=== PATIENT | female | born 1990 | race Caucasian/White ===

== ENCOUNTER 2016-07-04 17:49 | Emergency (ER) | payer OTHER, MEDICAID ==
[2016-07-04 18:02] VITALS: TEMP 98.8
[2016-07-04] MEDS ORDERED: NS 1,000 ML IV ONE (18:06)
[2016-07-04] MEDS ORDERED: KETOROLAC 30 MG/1 ML SDV IVP ONE (18:06)
[2016-07-04] MEDS ORDERED: DEXAMETHASONE 10 MG/ML VIAL IVP ONE (18:06)
[2016-07-04] MEDS ORDERED: METOCLOPRAMIDE 10 MG/2 ML VIAL IVP ONE (18:07)
[2016-07-04] MEDS ORDERED: LORazepam 2 MG/ML INJ IVP ONE (18:12)
--- NOTE | 2016-07-04 19:21 | UCPHY ---
H & P Patient Type: Established Chief Complaint Nursing Narrative: migraine hx, migraine lasting 1 week, OTC meds not working. Time Seen by Provider: 07/04/16 18:04 HPI/ROS: This patient has a headache that is frontal location throbbing in nature and consistent with her previous migraines. She describes the pain as 8/10. She has had an ongoing headache now for 1 week. Peak intensity is current intensity. She has tried [id number]-lhyekat medications which usually gives her relief such as Excedrin without relief. She has associated nausea with vomiting intermittently. She also describes hyper ache uses and photophobia. ROS: No recent fevers or chills. No other constitutional symptoms. HEENT: No recent nasal congestion or sinus pressure. Neuro: No visual changes. No numbness tingling or focal weakness. No recent trauma. No neck stiffness. No confusion. Pulmonary in no cough. No complaints cardiovascular: No complaints. GI: Intermittent vomiting. She is tolerating p.o. fluids intermittently. No belly pain. : No complaints 10 point ROS is otherwise negative. Source: Patient Exam Limitations: No limitations - Personal History LMP (Females 10-55): Now Current Tetanus Diphtheria and Acellular Pertussis (TDAP): Unsure Tetanus Vaccine Date: unsure - Medical/Surgical History PMH: Migraines Mild asthma Hx Asthma: Yes Hx Chronic Respiratory Disease: No Hx Diabetes: No Hx Cardiac Disease: No Hx Renal Disease: No Hx Cirrhosis: No Hx Alcoholism: No Hx HIV/AIDS: No Hx Splenectomy or Spleen Trauma: No Other PMH: bulging discs, cholecystectomy, heart murmur, chronic back pain, migraines,tubal ligation,3 -csect - Family History Significant Family History: No pertinent family hx - Social History Smoking Status: Former smoker Alcohol Use: Occasionally Drug Use: None - Physical Exam Exam: Physical exam: Vital signs are normal General: Patient is in no acute distress. HEENT: Is no external evidence of trauma on exam. Eyes: Pupils are equal and reactive to light. Extraocular motions are intact. Optic fundi: Clear with no papilledema or hemorrhage. Nose atraumatic. Ears: Clear bilaterally with no hemotympanum. Oropharynx: No dental trauma or malocclusion. No intraoral lacerations. Neck: Supple with no meningismus Lungs: Clear to auscultation bilaterally Cardiac: Regular rate and rhythm no murmur gallop or rub. Abdomen: Soft nontender no organomegaly Skin: No rash, pallor or diaphoresis Neuro: GCS of 15. Cranial nerves II through XII intact. Cerebellar exam is normal as judged by symmetric rapid hand movements bilaterally. No pronator drift. No sensory or motor deficits are appreciated. Initial differential diagnosis: Migraine headache, viral syndrome, tension headache, doubt PASSENGER FLAGMAN infection or PASSENGER FLAGMAN lesion. Constitutional: Initial Vital Signs Temperature (C) 37.1 C 07/04/16 17:58 Heart Rate 86 07/04/16 17:58 Respiratory Rate 16 07/04/16 17:58 Blood Pressure 161/89 H 07/04/16 17:58 O2 Sat (%) 100 07/04/16 17:58 O2 Delivery Mode Room Air Allergies/Adverse Reactions: aloe vera [Aloe Vera] Allergy (Verified 03/03/16 12:21) apple [Apple] Allergy (Verified 03/03/16 12:21) lactose [Lactose] Allergy (Verified 03/03/16 12:21) prochlorperazine edisylate [From Compazine] Allergy (Verified 03/03/16 12:21) prochlorperazine maleate [From Compazine] Allergy (Verified 03/03/16 12:21) Sulfa (Sulfonamide Antibiotics) Allergy (Verified 03/03/16 12:21) ZOFRAN, CAUSES MIGRAINES Allergy (Uncoded 03/03/16 12:21) Home Medications: Medication Instructions Recorded Albuterol Hfa Anes Only [Proair 2 puffs IH Q4 PRN #1 mdi 05/20/14 Hfa Icu (*)] Prozac 20 MG (*) 01/11/16 SUMAtriptan [Imitrex 50 MG (RX)] 50 - 100 mg PO Q2H PRN #6 tab 07/04/16 Medical Decision Making ED Course/Re-evaluation: IV normal saline bolus Reglan, Benadryl, Toradol, Decadron, 0.5 mg of Ativan IV with complete resolution of her headache down to a 0/10. at the time discharge patient has normal vital signs, feels well continues to have a normal mental status and nonfocal exam. Discussion: Patient with migraine improved with treatment. No clinical evidence to suggest PASSENGER FLAGMAN infection, or other concerning findings. - Data Points Medications Given: Discontinued Medications Dexamethasone (Decadron Injection) 10 mg IVP EDNOW ONE Stop: 07/04/16 18:07 Last Admin: 07/04/16 19:08 Dose: 10 mg Diphenhydramine HCl (Benadryl Injection) 25 mg IVP EDNOW ONE Stop: 07/04/16 18:07 Last Admin: 07/04/16 19:08 Dose: 25 mg Sodium Chloride (Ns) 1,000 mls @ 0 mls/hr IV ONCE ONE PRN Reason: Wide Open Stop: 07/04/16 18:07 Last Admin: 07/04/16 19:09 Dose: 1,000 mls Ketorolac Tromethamine (Toradol) 30 mg IVP EDNOW ONE Stop: 07/04/16 18:07 Last Admin: 07/04/16 19:08 Dose: 30 mg Lorazepam (Ativan Injection) 0.5 mg IVP EDNOW ONE Stop: 07/04/16 18:13 Last Admin: 07/04/16 19:08 Dose: 0.5 mg Metoclopramide HCl (Reglan Injection) 5 mg IVP EDNOW ONE Stop: 07/04/16 18:08 Last Admin: 07/04/16 19:09 Dose: 5 mg Departure - Departure Disposition: Home, Routine, Self-Care Clinical Impression: Dehydration Migraine Qualifiers: Migraine type: unspecified Status migrainosus presence: with status migrainosus Intractability: not intractable Qualified Code(s): G43.901 - Migraine, unspecified, not intractable, with status migrainosus Condition: Good Instructions: Migraine Headache (ED) Additional Instructions: Diagnosis: Migraine 2. Dehydration Plan: Home to rest. Drink plenty fluids If you have a recurrent headache, try Imitrex and ibuprofen Follow up your primary care physician for recheck for any ongoing symptoms Go to the emergency department for any significant worsening of her symptoms despite treatment plan Referrals: Clemencia Ruby MD [Primary Care Provider] - As per Instructions Prescriptions: SUMAtriptan [Imitrex 50 MG (RX)] 50 - 100 mg PO Q2H PRN #6 tab PRN Reason: migraine - PQRS PQRS Measurement: NA
[2016-07-04 19:30] VITALS: BP 115/68; PULSE 92; RESP 12; O2SAT 94
== END 2016-07-04 19:34 | disposition home or self-care (01) ==
LOC: CED 17:49
DX: G43.901 Migraine, unspecified, not intractable, with status migrainosus (principal); E86.0 Dehydration; Z87.891 Personal history of nicotine dependence
CPT/HCPCS: 96361-PO; 96374-PO; 96375-PO; 99215-PO; G0463-PO; J1200; J1885; J2765

== ENCOUNTER 2016-11-19 14:39 | Emergency (ER) | payer OTHER, MEDICAID ==
[2016-11-19 14:57] VITALS: RESP 16
[2016-11-19] MEDS ORDERED: NS 1,000 ML IV ONE (15:20)
[2016-11-19] MEDS ORDERED: ONDANSETRON 4 MG/2 ML VIAL IVP ONE (15:20)
[2016-11-19 15:26] LABS: % IMMATURE GRANULYOCYTES 0.3 % (0.0-1.1); ABSOLUTE IMMATURE GRANULOCYTES 0.03 10^3/uL (0.00-0.10); ADD DIFF? NO; ADD MORPH? NO; ADD SCAN? NO; ATYPICAL LYMPHOCYTE FLAG 0 (0-99); FRAGMENT RBC FLAG 20 (0-99); HEMATOCRIT 34.4 % (38.0-47.0); HEMOGLOBIN 11.2 g/dL (12.6-16.3); LEFT SHIFT FLG 0 (0-99); LIPEMIA HEMOLYSIS FLAG 80 (0-99); MEAN CELL HEMOGLOBIN 27.1 pg (27.9-34.1); MEAN CELL HEMOGLOBIN CONCENTR. 32.6 g/dL (32.4-36.7); MEAN CELL VOLUME 83.3 fL (81.5-99.8); MEAN PLATELET VOLUME 11.6 fL (8.7-11.7); PLATELET CLUMPS FLAG 10 (0-99); PLATELET COUNT 262 10^3/uL (150-400); RED BLOOD CELL COUNT 4.13 10^6/uL (4.18-5.33); RED CELL DISTRIBUTION WIDTH 16.6 % (11.5-15.2)
--- NOTE | 2016-11-19 15:29 | EDPHY ---
H & P Stated Complaint: suprapubic abd pain x1wk with chills,nausea and vomiting Time Seen by Provider: 11/19/16 14:50 HPI/ROS: This patient reports fairly abrupt onset of lower abdominal pain suprapubic region 1 week ago while she was doing dishes at home. Since then she has had constant ongoing pain associated with bilateral low back pain that is now 7/10 intensity achy in nature. She notes no clear exacerbating factors. She states that the back pain is about 4/10 intensity. It does not worsen with movement. She does have associated nausea and slightly decreased appetite but no other associated symptoms. She has never had this type of discomfort before. She reports partial relief from ibuprofen Tylenol in no other exacerbating or relieving factors. She has not taken any analgesics today. ROS: No fevers or chills. No other constitutional symptoms HEENT: No symptoms Pulmonary: No cough shortness of breath Neuro: Occasional lightheadedness since the symptoms started. No syncope. No headache. Except for chronic 3/10 frontal headache similar to previous headaches. She states this is not a migraine headache which she also sometimes gets. Cardiovascular: No heart palpitations or chest pain. GI: No upper belly pain. Normal bowel movements. She has nausea and vomiting though no vomiting today she has ongoing nausea and anorexia. All she had he today was a gummy warm. Skin: No rash : No dysuria. No vaginal discharge. Last menstrual period was normal timing 2 weeks ago. 10 point ROS is otherwise negative Source: Patient Exam Limitations: No limitations - Personal History LMP (Females 10-55): 8-14 Days Ago Tetanus Vaccine Date: unsure - Medical/Surgical History Hx Asthma: Yes Hx Chronic Respiratory Disease: No Hx Diabetes: No Hx Cardiac Disease: No Hx Renal Disease: No Hx Cirrhosis: No Hx Alcoholism: No Hx HIV/AIDS: No Hx Splenectomy or Spleen Trauma: No Other PMH: bulging discs, cholecystectomy, heart murmur, chronic back pain, migraines,tubal ligation,3 -csect G 3 P 3 - Family History Significant Family History: No pertinent family hx - Social History Smoking Status: Current every day smoker (She smokes 10 cigarettes a day) Alcohol Use: Rarely Drug Use: None Additional Social History: Mother of 3 children ages 2 4 in 6 - Physical Exam Exam: General Appearance: Alert, no distress. Eyes: Pupils equal and round no pallor or injection. ENT, Mouth: Mucous membranes moist. Respiratory: There are no retractions, lungs are clear to auscultation. Cardiovascular: Regular rate and rhythm. Gastrointestinal: Normoactive, soft, mild suprapubic tenderness with no guarding or rebound. She also has mild right lower quadrant tenderness with no guarding or rebound but the suprapubic tenderness is more severe. No upper belly tenderness. She is moderately obese. scar is clean dry intact Back: She has left paraspinous tenderness more than right and mild midline tenderness. Despite this she maintains a good range of motion and straight leg raise is negative bilaterally. No CVA tenderness. Neurological: GCS 15 with no focal deficits. Skin: Warm and dry, no rashes. Musculoskeletal: Neck is supple nontender. Extremities are symmetrical, full range of motion. Psychiatric: Mood and affect are normal DIFFERENTIAL DIAGNOSIS: After history and physical exam differential diagnosis was considered for mittelschmerz, ectopic , appendicitis, UTI, diverticulitis, constipation Constitutional: Initial Vital Signs Temperature (C) 37.7 C 11/19/16 14:45 Heart Rate 99 11/19/16 14:45 Respiratory Rate 16 11/19/16 14:45 Blood Pressure 140/88 H 11/19/16 14:45 O2 Sat (%) 95 11/19/16 14:45 O2 Delivery Mode Room Air Allergies/Adverse Reactions: aloe vera [Aloe Vera] Allergy (Verified 11/19/16 14:51) apple [Apple] Allergy (Verified 11/19/16 14:51) lactose [Lactose] Allergy (Verified 11/19/16 14:51) prochlorperazine edisylate [From Compazine] Allergy (Verified 11/19/16 14:51) prochlorperazine maleate [From Compazine] Allergy (Verified 11/19/16 14:51) Sulfa (Sulfonamide Antibiotics) Allergy (Verified 11/19/16 14:51) ZOFRAN, CAUSES MIGRAINES Allergy (Uncoded 11/19/16 14:51) Home Medications: Medication Instructions Recorded FLUoxetine 11/19/16 Ibuprofen [Motrin (*)] 600 mg PO Q6 PRN #30 tab 11/19/16 Ondansetron Odt [Zofran Odt] 4 - 8 mg PO Q4PRN PRN #4 tab 11/19/16 traMADol [Ultram 50 mg (*)] 50 - 100 mg PO Q4 PRN #15 tab 11/19/16 Medical Decision Making - Diagnostics Imaging Results: Imaging Impressions Abdomen CT 11/19/16 16:38 Impression: 1. Nonspecific minimal bladder wall thickening, which could be related to underdistention or inflammation. 2. Trace pleural effusions. 3. Additional findings, as above. Findings discussed with Devonte Barrera M.D., on November 19, 2016 at 1712. Imaging: Discussed imaging studies w/ call center manager Radiologist ED Course/Re-evaluation: IV normal saline bolus, and p. o. Patient declines analgesics this time. Zofran 4 mg IV with reduction in nausea. Discussion: This patient's CT scan reveals no significant pathology. With a workup today-CBC with minimal elevation of white count just over 10, normal electrolytes, negative normal urinalysis with effectively ruled out ectopic , appendicitis, UTI, diverticulitis. She does not have a surgical abdomen. She may have mittelschmerz given that the pain is mid cycle. I counseled regarding this. She understands the need to return if she has any significant worsening despite the treatment plan of oral analgesics. - Data Points Laboratory Results: Laboratory Results 11/19/16 15:12 11/19/16 15:12 11/19/16 11/19/16 11/19/16 16:10 15:12 15:12 WBC RBC Hgb Hct MCV MCH MCHC RDW Plt Count MPV Neut % (Auto) Lymph % (Auto) [place] % (Auto) Eos % (Auto) Baso % (Auto) Nucleat RBC Rel Count Absolute Neuts (auto) Absolute Lymphs (auto) Absolute Monos (auto) Absolute Eos (auto) Absolute Basos (auto) Absolute Nucleated RBC Immature Gran % Immature Gran # Sodium 140 mEq/L mEq/L (134-144) Potassium 4.0 mEq/L mEq/L (3.5-5.2) Chloride 103 mEq/L mEq/L (97-110) Carbon Dioxide 23 mEq/l mEq/l (22-31) Anion Gap 14 mEq/L mEq/L (8-16) BUN 8 mg/dL mg/dL (7-23) Creatinine 0.6 mg/dL mg/dL (0.6-1.0) Estimated GFR > 60 Glucose 120 mg/dL H mg/dL (70-100) Calcium 9.7 mg/dL mg/dL (8.5-10.4) Total Bilirubin 0.3 mg/dL mg/dL (0.1-1.4) AST 11 IU/L L IU/L (14-46) ALT 26 IU/L IU/L (9-52) Alkaline Phosphatase 60 IU/L IU/L (38-126) Total Protein 6.5 g/dL g/dL (6.3-8.2) Albumin 4.2 g/dL g/dL (3.5-5.0) Lipase 32.0 IU/L IU/L (23-300) Beta HCG, Qual NEGATIVE Urine Color YELLOW Urine Appearance CLEAR Urine pH 7.5 (5.0-7.5) Ur Specific [place] 1.010 (1.002-1.030) Urine Protein NEGATIVE (NEGATIVE) Urine Ketones NEGATIVE (NEGATIVE) Urine Blood NEGATIVE (NEGATIVE) Urine Nitrate NEGATIVE (NEGATIVE) Urine Bilirubin NEGATIVE (NEGATIVE) Urine Urobilinogen 0.2 EU EU (0.2-1.0) Ur Leukocyte Esterase NEGATIVE (NEGATIVE) Urine Glucose NEGATIVE (NEGATIVE) 11/19/16 15:12 WBC 10.20 10^3/uL H 10^3/uL (3.80-9.50) RBC 4.13 10^6/uL L 10^6/uL (4.18-5.33) Hgb 11.2 g/dL L g/dL (12.6-16.3) Hct 34.4 % L % (38.0-47.0) MCV 83.3 fL fL (81.5-99.8) MCH 27.1 pg L pg (27.9-34.1) MCHC 32.6 g/dL g/dL (32.4-36.7) RDW 16.6 % H % (11.5-15.2) Plt Count 262 10^3/uL 10^3/uL (150-400) MPV 11.6 fL fL (8.7-11.7) Neut % (Auto) 64.9 % % (39.3-74.2) Lymph % (Auto) 27.4 % % (15.0-45.0) [place] % (Auto) 4.4 % L % (4.5-13.0) Eos % (Auto) 2.6 % % (0.6-7.6) Baso % (Auto) 0.4 % % (0.3-1.7) Nucleat RBC Rel Count 0.0 % % (0.0-0.2) Absolute Neuts (auto) 6.62 10^3/uL H 10^3/uL (1.70-6.50) Absolute Lymphs (auto) 2.79 10^3/uL 10^3/uL (1.00-3.00) Absolute Monos (auto) 0.45 10^3/uL 10^3/uL (0.30-0.80) Absolute Eos (auto) 0.27 10^3/uL 10^3/uL (0.03-0.40) Absolute Basos (auto) 0.04 10^3/uL 10^3/uL (0.02-0.10) Absolute Nucleated RBC 0.00 10^3/uL 10^3/uL (0-0.01) Immature Gran % 0.3 % % (0.0-1.1) Immature Gran # 0.03 10^3/uL 10^3/uL (0.00-0.10) Sodium Potassium Chloride Carbon Dioxide Anion Gap BUN Creatinine Estimated GFR Glucose Calcium Total Bilirubin AST ALT Alkaline Phosphatase Total Protein Albumin Lipase Beta HCG, Qual Urine Color Urine Appearance Urine pH Ur Specific [place] Urine Protein Urine Ketones Urine Blood Urine Nitrate Urine Bilirubin Urine Urobilinogen Ur Leukocyte Esterase Urine Glucose Medications Given: Discontinued Medications Sodium Chloride (Ns) 1,000 mls @ 0 mls/hr IV EDNOW ONE; Wide Open PRN Reason: Protocol Stop: 11/19/16 15:21 Last Admin: 11/19/16 15:30 Dose: 1,000 mls Ondansetron HCl (Zofran) 4 mg IVP EDNOW ONE Stop: 11/19/16 15:21 Last Admin: 11/19/16 15:31 Dose: 4 mg Departure - Departure Disposition: Home, Routine, Self-Care Clinical Impression: [place] Vomiting Qualifiers: Vomiting type: unspecified Vomiting Intractability: non-intractable Nausea presence: with nausea Qualified Code(s): R11.2 - Nausea with vomiting, unspecified Condition: Good Instructions: [place] (ED) Additional Instructions: Diagnosis: Mittearelymerz 2. vomiting Plan: Ibuprofen and Tylenol for pain Tramadol in addition for pain that prevents sleep. No driving, alcohol or work on tramadol Return for any significant worsening despite treatment plan Zofran for nausea or vomiting if needed Typically this pain improves over 3-7 days. Referrals: Clemencia Ruby MD [Primary Care Provider] - As per Instructions Prescriptions: Ibuprofen [Motrin (*)] 600 mg PO Q6 PRN #30 tab PRN Reason: Pain Ondansetron Odt [Zofran Odt] 4 - 8 mg PO Q4PRN PRN #4 tab PRN Reason: Vomiting traMADol [Ultram 50 mg (*)] 50 - 100 mg PO Q4 PRN #15 tab PRN Reason: breakthrough pain
[2016-11-19 15:39] LABS: ALANINE AMINOTRANSFERASE 26 IU/L (9-52); ALBUMIN 4.2 g/dL (3.5-5.0); ALKALINE PHOSPHATASE 60 IU/L (38-126); ANION GAP 14 mEq/L (8-16); ASPARTATE AMINOTRANSFERASE 11 IU/L (14-46); BILIRUBIN,TOTAL 0.3 mg/dL (0.1-1.4); CALCIUM 9.7 mg/dL (8.5-10.4); CARBON DIOXIDE 23 mEq/l (22-31); CHLORIDE 103 mEq/L (97-110); CREATININE 0.6 mg/dL (0.6-1.0); GLOMERULAR FILTRATION RATE > 60; GLUCOSE 120 mg/dL (70-100); SODIUM 140 mEq/L (134-144); TOTAL PROTEIN 6.5 g/dL (6.3-8.2)
[2016-11-19 16:18] LABS: COLOR YELLOW; LEUKOCYTE ESTERASE,URINE NEGATIVE (NEGATIVE); NITRITE,URINE NEGATIVE (NEGATIVE); PH,URINE 7.5 (5.0-7.5)
[2016-11-19] MEDS ORDERED: IOPAMIDOL (ISOVUE-300) 100 ML BTL ONE (16:44)
[2016-11-19 17:41] VITALS: BP 117/86; PULSE 79; TEMP 98.6; O2SAT 95
== END 2016-11-19 17:40 | disposition home or self-care (01) ==
LOC: CED 14:39
DX: N94.0 Mittelschmerz (principal); R11.2 Nausea with vomiting, unspecified; J45.909 Unspecified asthma, uncomplicated; F17.210 Nicotine dependence, cigarettes, uncomplicated; Z90.49 Acquired absence of other specified parts of digestive tract
CPT/HCPCS: 74177-PO; 80053-PO; 81003-PO; 83690-PO; 84703-PO; 85025-PO; 96374; J2405; Q9967

== ENCOUNTER → 2016-12-26 | Outpatient (CLI) | payer OTHER, MEDICAID | LOC: CIMAGING 10:08 | PROVIDERS: ATTEND Family Medicine | DX: R10.13 Epigastric pain (principal); R11.2 Nausea with vomiting, unspecified; Z90.49 Acquired absence of other specified parts of digestive tract | CPT/HCPCS: 76700-PO ==

== ENCOUNTER 2017-05-15 12:26 | Emergency (ER) | payer MEDICAID, OTHER ==
[2017-05-15 12:34] VITALS: BP 134/90; PULSE 80; RESP 18; TEMP 98.4; O2SAT 99
[2017-05-15] MEDS ORDERED: IBUPROFEN 600 MG TAB PO ONE (12:40)
--- NOTE | 2017-05-15 13:10 | EDPHY ---
H & P Time Seen by Provider: 05/15/17 12:36 HPI/ROS: This patient tripped on a toy that her child left on stairs at her home last night falling down 6 carpeted stairs and injuring her left ankle. She reports most the pain is to the medial ankle but there is also circumferential swelling to the distal leg. She thinks she likely struck the leg against a wooden brace at the end of the stairs during her fall. She reports 7/10 ankle pain. She took ibuprofen Tylenol last night but has not taken any medications this morning. The pain worsens with attempts at weight-bearing. No other exacerbating factors. She came here by private vehicle for evaluation ROS: Neuro: She did strike her head on the wood floor and had a brief headache last night but was not dazed and had no LOC. No headache today. No numbness tingling or focal weakness. No confusion. Musculoskeletal: No neck, back or other extremity injuries. GI: No vomiting 5 point ROS is otherwise negative Past Medical/Surgical History: Moderate obesity. Otherwise healthy Social History: She has 3 children ages 3, 5, and 7 and is a [id number] mother Smoking Status: Former smoker Physical Exam: Physical Exam Vital signs are normal. General: Pleasant moderately obese female No acute distress HEENT: Atraumatic. Appreciate no scalp hematomas or significant scalp tenderness. No facial trauma. Nose is atraumatic oropharynx: No dental trauma ears: Clear bilaterally Neck: Nontender Eyes: Pupils equal and react to light. Extraocular motions are intact. Lungs: No respiratory distress. No chest wall tenderness Back: Nontender Cardiac: Brisk capillary refill is intact throughout. Pulses are 2+ and symmetric in the affected extremity. Skin: The patient has a small scab less than a cm in diameter to the left lower leg that she attributes to an insect bite sometime within the last 10 days. This inferior to this is the area of ecchymosis swelling and slight erythema. There is also very slight warmth to touch. No fluctuance. Extremities: Atraumatic normal except for left ankle Left ankle: Patient has circumferential swelling to the distal leg with associated ecchymosis and mild tenderness medially more than laterally. Ecchymosis extends to the area just inferior to the medial malleolus with associated tenderness that is moderate. Anterior drawer exam reveals no laxity. She has no associated foot swelling or tenderness. Neuro: GCS 15. Cranial nerves 2 through 12 are intact. She has no focal sensory or motor deficits. Initial differential diagnosis: Traumatic hematoma, ankle sprain, ankle fracture, cellulitis from insect bite, doubt DVT Constitutional: Initial Vital Signs Temperature (C) 36.9 C 05/15/17 12:29 Heart Rate 80 05/15/17 12:29 Respiratory Rate 18 05/15/17 12:29 Blood Pressure 134/90 H 05/15/17 12:29 O2 Sat (%) 99 05/15/17 12:29 O2 Delivery Mode Room Air Allergies/Adverse Reactions: aloe vera [Aloe Vera] Allergy (Verified 05/15/17 12:36) Hives lactose [Lactose] Allergy (Verified 05/15/17 12:36) Vomiting ondansetron Allergy (Verified 05/15/17 12:36) Other-Enter Comments prochlorperazine edisylate [From Compazine] Allergy (Verified 05/15/17 12:36) Other-Enter Comments prochlorperazine maleate [From Compazine] Allergy (Verified 05/15/17 12:36) Other-seizure Sulfa (Sulfonamide Antibiotics) Allergy (Verified 05/15/17 12:36) Vomiting Home Medications: Medication Instructions Recorded FLUoxetine 11/19/16 Hyoscyamine 05/15/17 traMADol [Ultram 50 mg (*)] 50 - 100 mg PO Q4 PRN #15 tab 05/15/17 MDM/Departure - MDM Diagnostics: Three-view Ankle x-ray is negative for fracture by my interpretation. There is evidence of soft tissue swelling. Imaging: I viewed and interpreted images myself Medications Given: Discontinued Medications Ibuprofen (Motrin) 600 mg PO EDNOW ONE Stop: 05/15/17 12:41 Last Admin: 05/15/17 12:42 Dose: 600 mg ED Course/Re-evaluation: Ibuprofen p.o. I counseled patient regarding ankle sprain Patient requests something in addition for analgesia beyond ibuprofen Tylenol. Will provide a small prescription of tramadol in a counseled her regarding this medication. Our tech placed the patient in Dung wrap and a Velcro stirrup splint as per my direction. Patient is neurovascularly intact post splint application. Discussion: Patient with medial ankle sprain and traumatic hematoma to the lower leg. I doubt cellulitis in this patient from previous insect bite. I counseled her regarding ankle sprain. Although she struck her head she has no evidence clinically by history of concussion and no clinical evidence that would suggest intracranial bleed, contusion or other complicating factors/no evidence of significant head injury today. She is placed in Dung wrap. Counseled her regarding her injury - Depart Disposition: Home, Routine, Self-Care Clinical Impression: Traumatic hematoma Ankle sprain Qualifiers: Encounter type: initial encounter Involved ligament of ankle: deltoid ligament Laterality: left Qualified Code(s): S93.422A - Sprain of deltoid ligament of left ankle, initial encounter Minor head injury without loss of consciousness Qualifiers: Encounter type: initial encounter Qualified Code(s): S09.90XA - Unspecified injury of head, initial encounter Condition: Good Instructions: Head Injury (ED), Ankle Sprain (ED), Crutch Instructions (ED) Additional Instructions: Diagnosis: 1. Ankle sprain 2. Traumatic hematoma of left leg 3. Minor head injury Plan: Ice, elevation of affected lower extremity Ankle brace when your up and about until symptoms improve Tylenol and tramadol for pain if needed. No driving, alcohol work on tramadol. Follow up with orthopedic physician listed below if he have any ongoing symptoms last beyond the next week to 10 days despite the treatment plan. Use crutches when your up and about until it no longer hurts to bear weight. Return if he develops any significant worsening symptoms despite treatment plan Prescriptions: traMADol [Ultram 50 mg (*)] 50 - 100 mg PO Q4 PRN #15 tab PRN Reason: breakthrough pain Referrals: Brandon Haskins MD [Medical Doctor] - As per Instructions
== END 2017-05-15 13:25 | disposition home or self-care (01) ==
LOC: CED 12:26
DX: S09.90XA Unspecified injury of head, initial encounter (principal); S80.12XA Contusion of left lower leg, initial encounter; S93.422A Sprain of deltoid ligament of left ankle, initial encounter; Z87.891 Personal history of nicotine dependence; W10.8XXA Fall (on) (from) other stairs and steps, initial encounter
CPT/HCPCS: 73610-PO; L4350

== ENCOUNTER → 2017-05-31 | Outpatient (CLI) | payer MEDICAID | LOC: CIMAGING 15:19 | PROVIDERS: ATTEND Family Medicine | DX: M48.04 Spinal stenosis, thoracic region (principal) | CPT/HCPCS: 71046-PO; 72070-PO; 72100-PO ==

== ENCOUNTER → 2017-06-07 | Outpatient (CLI) | payer MEDICAID | LOC: FIMAGING 07:58 | PROVIDERS: ATTEND Family Medicine | DX: M51.24 Other intervertebral disc displacement, thoracic region (principal); G95.20 Unspecified cord compression ==

== ENCOUNTER → 2017-06-09 | Outpatient (CLI) | payer MEDICAID | LOC: FIMAGING 15:00 | PROVIDERS: ATTEND Family Medicine | DX: M25.572 Pain in left ankle and joints of left foot (principal); R60.9 Edema, unspecified ==

== ENCOUNTER 2018-01-22 14:57 | Emergency (ER) | payer MEDICAID ==
[2018-01-22] MEDS ORDERED: NS 1,000 ML IV ONE (15:16)
--- NOTE | 2018-01-22 16:24 | EDPHY ---
H & P Time Seen by Provider: 01/22/18 15:03 HPI/ROS: HPI Cough, congestion, abdominal pain. 27-year-old female from the offices of [facility]. This patient reports that she has had body aches, a dry hacking cough, nausea and intermittent fevers and nasal congestion ongoing for 3 weeks now. She was seen at [facility] for that. She also told her primary care physician at [facility] that she was having right lower quadrant pain. She was sent over here for CT imaging to evaluate for possible appendicitis. She denies ill contacts. She is immunized. ROS: Constitutional: As above, no chills. No weakness. Eyes: No discharge. No changes in vision. ENT: As above. Respiratory: As above. No shortness of breath. Cardiac: No chest pain, no palpitations. Gastrointestinal: As above, no vomiting, no diarrhea. Genitourinary: No hematuria. No dysuria or increased frequency with urination. Musculoskeletal: No back pain. No neck pain. No myalgias or arthralgias. Skin: No rashes. Neurological: No headache. No focal weakness or altered sensation. Past medical history: Bulging disc, cholecystectomy, heart murmur, chronic back pain, migraine headaches, tubal ligation, x3, . Social history: Here by herself. Nonsmoker. No alcohol. Physical Exam: General Appearance: Alert, no distress. This patient is responding to questions appropriately and in full sentences. This patient appears well- hydrated and well-nourished. Eyes: Pupils equal and round no pallor or injection. No lid edema, erythema or injection. ENT, Mouth: Mucous membranes are moist. The pharyngeal tissues are unremarkable. No edema or swelling. No asymmetry suggestive of abscess. No erythema or exudates. No cervical, submental, submandibular lymphadenopathy. Respiratory: There are no retractions, lungs are clear to auscultation with good air movement bilaterally. No tachypnea. Intermittent dry hacking cough. Cardiovascular: Regular rate and rhythm. No murmur appreciated. Gastrointestinal: Abdomen is soft with right lower quadrant tenderness on palpation, no masses, bowel sounds normal. No focal tenderness at McBurney's point. No Renner sign. Neurological: Motor sensory function is grossly intact. Cranial nerves are normal. Gait is normal. Skin: Warm and dry, no rashes. Musculoskeletal: Neck is supple and nontender. Extremities are symmetrical. All joints range without pain or impingement. Psychiatric: No agitation. No depression. Database: EKG: Imaging: CT scan of abdomen and pelvis with IV contrast: The appendix is well visualized and is normal. She is constipated. No other significant pathology. Results were discussed with staff radiologist Dr. John Corrales. Chest x-ray PA and lateral; the cardiac mediastinal silhouette is unremarkable. No evidence of infiltrate or pneumothorax. Mild bronchitis. No acute cardiopulmonary disease process noted. Interpreted by me. Procedures: Emergency department course: Vital signs reviewed and are normal. The patient is here to be evaluated for appendicitis. She does tell me that she had a CT scan 3-4 weeks ago secondary to similar right lower quadrant pain and this was negative. This was done at a different hospital. Her exam is concerning for possible appendicitis. I also feel she has a viral bronchitis and upper respiratory infection. She consents to CT imaging to evaluate for appendicitis. An IV was placed. She was placed on a monitor. She was started on IV normal saline with 1 L to be given over the next hour. She will be given pain medication and nausea medication as needed. 5:50 p.m., the patient was re-evaluated. Resting comfortably at this time. Results of her emergency department workup were discussed with her. Repeat abdominal exam she is soft and nontender on palpation throughout. Her presentation is consistent with a viral syndrome. Respiratory pathogen panel is pending currently. However, this can be followed up by her primary care physician. She feels comfortable going home and following up with her primary care physician tomorrow. Follow-up and return to emergency department precautions thoroughly reviewed with her. All of her questions were answered. She was discharged from the emergency department in good condition. Differential Diagnosis: The differential diagnosis on this patient includes but is not limited to viral bronchitis, viral upper respiratory infection. Appendicitis, pneumonia, serious bacterial infection unlikely. This represents a partial list of diagnoses considered. These considerations are based on history, physical exam , past history, reassessment and diagnostic testing. Smoking Status: Former smoker Constitutional: Initial Vital Signs Temperature (C) 37.3 C 01/22/18 15:08 Heart Rate 94 01/22/18 15:08 Respiratory Rate 18 01/22/18 15:08 Blood Pressure 133/100 H 01/22/18 15:08 O2 Sat (%) 96 01/22/18 15:08 O2 Delivery Mode Room Air Allergies/Adverse Reactions: aloe vera [Aloe Vera] Allergy (Verified 01/22/18 15:07) Hives lactose [Lactose] Allergy (Verified 01/22/18 15:07) Vomiting ondansetron Allergy (Verified 01/22/18 15:07) Other-Enter Comments prochlorperazine edisylate [From Compazine] Allergy (Verified 01/22/18 15:07) Other-Enter Comments prochlorperazine maleate [From Compazine] Allergy (Verified 01/22/18 15:07) Other-seizure Sulfa (Sulfonamide Antibiotics) Allergy (Verified 01/22/18 15:07) Vomiting Home Medications: Medication Instructions Recorded FLUoxetine 11/19/16 traMADol [Ultram 50 mg (*)] 50 - 100 mg PO Q4 PRN #15 tab 05/15/17 Medical Decision Making - Diagnostics Imaging Results: Imaging Impressions Chest X-Ray 01/22/18 15:17 Impression: No pneumonia identified. Abdomen CT 01/22/18 16:43 Impression: 1. Constipation. 2. Airways disease/bronchitis. 3. Additional findings as above. Findings discussed with Tobias Mishra MD 01/22/2018 at 17:39. - Data Points Laboratory Results: Laboratory Results 01/22/18 15:50 01/22/18 01/22/18 01/22/18 16:20 16:01 15:50 WBC 8.55 10^3/uL 10^3/uL (3.80-9.50) RBC 3.77 10^6/uL L 10^6/uL (4.18-5.33) Hgb 10.2 g/dL L g/dL (12.6-16.3) Hct 32.8 % L % (38.0-47.0) MCV 87.0 fL fL (81.5-99.8) MCH 27.1 pg L pg (27.9-34.1) MCHC 31.1 g/dL L g/dL (32.4-36.7) RDW 15.0 % % (11.5-15.2) Plt Count 337 10^3/uL 10^3/uL (150-400) MPV 10.7 fL fL (8.7-11.7) Neut % (Auto) 50.9 % % (39.3-74.2) Lymph % (Auto) 37.7 % % (15.0-45.0) [place] % (Auto) 6.5 % % (4.5-13.0) Eos % (Auto) 3.6 % % (0.6-7.6) Baso % (Auto) 1.1 % % (0.3-1.7) Nucleat RBC Rel Count 0.0 % % (0.0-0.2) Absolute Neuts (auto) 4.35 10^3/uL 10^3/uL (1.70-6.50) Absolute Lymphs (auto) 3.22 10^3/uL H 10^3/uL (1.00-3.00) Absolute Monos (auto) 0.56 10^3/uL 10^3/uL (0.30-0.80) Absolute Eos (auto) 0.31 10^3/uL 10^3/uL (0.03-0.40) Absolute Basos (auto) 0.09 10^3/uL 10^3/uL (0.02-0.10) Absolute Nucleated RBC 0.00 10^3/uL 10^3/uL (0-0.01) Immature Gran % 0.2 % % (0.0-1.1) Immature Gran # 0.02 10^3/uL 10^3/uL (0.00-0.10) POC Sodium 144 mEq/L mEq/L (135-145) POC Potassium 4.3 mEq/L mEq/L (3.3-5.0) POC Chloride 105.0 mEq/L mEq/L (97-110) POC Total CO2 27 mEq/L mEq/L (22-31) POC BUN 7 mg/dL mg/dL (7-23) POC Creatinine 0.7 mg/dL mg/dL (0.6-1.0) POC Glucose 88 mg/dL mg/dL (70-100) POC Calcium 9.1 mg/dL mg/dL (8.5-10.4) POC Total Bilirubin 0.3 mg/dL mg/dL (0.1-1.4) POC AST 24 IU/L IU/L (14-46) POC ALT 17 IU/L IU/L (9-52) POC Alk Phosphatase 77 IU/L IU/L (38-126) POC Total Protein 6.1 g/dL L g/dL (6.3-8.2) POC Albumin 3.2 g/dL L g/dL (3.5-5.0) Urine RBC 10-15 /hpf H /hpf (0-3) Urine WBC 1-3 /hpf /hpf (0-3) Ur Epithelial Cells TRACE /lpf /lpf (NONE-1+) Medications Given: Discontinued Medications Sodium Chloride (Ns) 1,000 mls @ 0 mls/hr IV ONCE ONE; Wide Open PRN Reason: Protocol Stop: 01/22/18 15:17 Last Admin: 01/22/18 16:09 Dose: 1,000 mls Point of Care Test Results: Chemistry 01/22/18 16:01 POC Sodium 144 mEq/L mEq/L (135-145) POC Potassium 4.3 mEq/L mEq/L (3.3-5.0) POC Chloride 105.0 mEq/L mEq/L (97-110) POC Total CO2 27 mEq/L mEq/L (22-31) POC BUN 7 mg/dL mg/dL (7-23) POC Creatinine 0.7 mg/dL mg/dL (0.6-1.0) POC Glucose 88 mg/dL mg/dL (70-100) POC Calcium 9.1 mg/dL mg/dL (8.5-10.4) POC Total Bilirubin 0.3 mg/dL mg/dL (0.1-1.4) POC AST 24 IU/L IU/L (14-46) POC ALT 17 IU/L IU/L (9-52) POC Alk Phosphatase 77 IU/L IU/L (38-126) POC Total Protein 6.1 g/dL L g/dL (6.3-8.2) POC Albumin 3.2 g/dL L g/dL (3.5-5.0) Influenza PCR Flu Nasal Swab Collection Date 01/22/18 Flu Nasal Swab Collection Time 16:25 Influenza A Result Not Detected Influenza B Result Not Detected Urine Collection Date 01/22/18 Collection Time 16:20 HCG Results Negative Urine Dip Collection Date 01/22/18 Collection Time 16:20 Specific [place] (1.002-1.030) 1.015 PH (5.0-7.5) 6.0 Leukocytes (Negative) Negative Nitrites (Negative) Negative Protein (Negative) Negative Glucose (Negative) Negative Ketones (Negative) Negative Urobilnogen (0.2-1.0 EU) 0.2 Bilirubin (Negative) Negative Blood (Negative) 2+ Departure - Departure Disposition: Home, Routine, Self-Care Clinical Impression: Bronchitis, Upper respiratory infection, Anemia, Hematuria Condition: Good Instructions: Upper Respiratory Infection (ED), Acute Bronchitis (ED), High Fiber Diet (ED), Constipation (ED) Additional Instructions: Read and follow provided instructions. Follow-up with your primary care physician , Dr. Rosario, tomorrow for re- evaluation. Your anemia should be followed. Results of your respiratory pathogen panel should be available by tomorrow as well. At this time we will not start you on an antibiotic. Use [id number] cough and cold medications such as NyQuil as directed for cough and to help you sleep. Return to the emergency department for worsening symptoms, high fever, worsening abdominal pain, difficulty breathing, rectal bleeding or other serious concerns. Referrals: Charmaine Trevizo, DO [Primary Care Provider] - As per Instructions
[2018-01-22] MEDS ORDERED: IOPAMIDOL (ISOVUE-300) 100 ML BTL ONE (16:56)
[2018-01-22 17:10] LABS: PLATELET COUNT 337 10^3/uL (150-400)
[2018-01-22 18:15] VITALS: BP 147/100
== END 2018-01-22 18:13 | disposition home or self-care (01) ==
LOC: CED 14:57
DX: J20.9 Acute bronchitis, unspecified (principal); K59.00 Constipation, unspecified
CPT/HCPCS: 71046-PO; 74177-PO; 80053-PO; Q9967

== ENCOUNTER → 2018-01-27 | Outpatient (CLI) | payer MEDICAID | LOC: CIMAGING 08:49 | PROVIDERS: ATTEND Family Medicine | DX: R10.9 Unspecified abdominal pain (principal); R31.9 Hematuria, unspecified | CPT/HCPCS: 76770-PO ==